=== PATIENT | female | born 1995 | race American Indian/Alaskan Native ===

== ENCOUNTER 2020-07-02 13:55 | Observation (INO) | payer SELFPAY ==
[2020-07-02] MEDS ORDERED: ONDANSETRON 4 MG ODT TAB PO ONE (14:27)
[2020-07-02] MEDS ORDERED: HYDROcodone/ACETAMINOPHEN 5-325 MG TAB PO ONE (14:27)
[2020-07-02 15:12] LABS: Basophils % (Auto) 0.3 % (0.0-1.8); Eosinophils # (Auto) 0.1 K/mm3 (0.0-0.4); Eosinophils % (Auto) 0.5 % (0.0-4.3); Hemoglobin 10.9 gm/dl (10.1-14.3); Lymphocytes # (Auto) 1.3 K/mm3 (1.2-5.4); Mean Corpuscular HGB Conc 33 % (30-34); Mean Corpuscular Volume 80 fl (79-97); Monocytes % (Auto) 7.1 % (0.0-7.3); Platelet Count 229 K/mm3 (140-440); Red Blood Count 4.15 M/mm3 (3.65-5.03); Red Cell Distribution Width 16.8 % (13.2-15.2)
[2020-07-02 15:33] LABS: Alanine Aminotransferase 12 units/L (7-56); Albumin 4.4 g/dL (3.9-5); Blood Urea Nitrogen 7 mg/dL (7-17); Calcium 9.3 mg/dL (8.4-10.2); Hemolysis Index 11
[2020-07-02 15:40] LABS: BUN/Creatinine Ratio 12
--- NOTE | 2020-07-02 15:52 | Emergency Department Report ---
ED Female HPI - General Chief complaint: Vaginal Bleeding Stated complaint: /LABOR CRAMPS Time Seen by Provider: 07/02/20 14:21 Source: patient Mode of arrival: Ambulatory Limitations: No Limitations - History of Present Illness Initial comments: Patient is a 24-year-old female presents emergency room complaints of lower abdominal pain that began last night. She describes the pain as contractions and cramping. Patient states that she had a medical pill on 06/29/2020. She states that she also has heavy vaginal bleeding. She states that she is changing her pad approximately every 30 minutes or so. She states that she did not realize that the medicine was in a cause contractions. She states that they wrote for her to have 100 mg of ibuprofen but states that it is not helping relieve her pain. She states that she has associated nausea and has had a couple episodes of vomiting. She denies any dysuria, abnormal vaginal di scharge, fever, diarrhea. No past medical history. No allergies to medications. She states that she was approximately 7 weeks prior to having her . /P: 1/A: 2 (one miscarriage, one ) - Related Data Home Medications Medication Instructions Recorded Confirmed Last Taken No Known Home Medications [No 07/02/20 07/02/20 Unknown Reported Home Medications] Allergies Allergy/AdvReac Type Severity Reaction Status Date / Time Sulfa (Sulfonamide Allergy Unknown Verified 07/02/20 18:48 Antibiotics) ED Review of Systems ROS: Stated complaint: /LABOR CRAMPS Other details as noted in HPI Comment: All other systems reviewed and negative ED Past Medical Hx - Past Medical History Previous Medical History?: No - Social History Smoking Status: Never Smoker Substance Use Type: None - Medications Home Medications: Home Medications Medication Instructions Recorded Confirmed Last Taken Type No Known Home Medications [No 07/02/20 07/02/20 Unknown History Reported Home Medications] ED Physical Exam - General Limitations: No Limitations General appearance: alert, in no apparent distress - Head Head exam: Present: atraumatic, normocephalic - Eye Eye exam: Present: normal appearance - ENT ENT exam: Present: mucous membranes moist - Respiratory Respiratory exam: Present: normal lung sounds bilaterally. Absent: respiratory distress, wheezes, rales, rhonchi, stridor, chest wall tenderness, accessory muscle use, decreased breath sounds, prolonged expiratory - Cardiovascular Cardiovascular Exam: Present: regular rate, normal rhythm, normal heart sounds. Absent: systolic murmur, diastolic murmur, rubs, gallop - GI/Abdominal GI/Abdominal exam: Present: soft, tenderness (surapubic ), normal bowel sounds. Absent: distended, guarding, rebound, rigid - Neurological Exam Neurological exam: Present: alert, oriented X3 - Psychiatric Psychiatric exam: Present: normal affect, normal mood - Skin Skin exam: Present: warm, dry, intact ED Course Vital Signs 07/02/20 07/02/20 07/02/20 14:22 15:00 18:14 Temperature 98.1 F Pulse Rate 86 Respiratory 18 18 18 Rate Blood Pressure 113/71 Blood Pressure [Right] O2 Sat by Pulse 99 100 Oximetry 07/02/20 18:23 Temperature 97.8 F Pulse Rate 86 Respiratory 18 Rate Blood Pressure Blood Pressure 114/60 [Right] O2 Sat by Pulse 100 Oximetry - Consultations Consultation #1: 07/02/20 18:[address] Edouard, E [employer] COORDINATOR who states that she plans to take patient to the OR for a D&C due to retained products/incomplete . ED Medical Decision Making - Lab Data Result diagrams: 07/02/20 14:55 07/02/20 14:55 Lab Results 07/02/20 07/02/20 07/02/20 Range/Units 14:55 14:55 14:55 WBC 13.5 H (4.5-11.0) K/mm3 RBC 4.15 (3.65-5.03) M/mm3 Hgb 10.9 (10.1-14.3) gm/dl Hct 33.0 (30.3-42.9) % MCV 80 (79-97) fl MCH 26 L (28-32) pg MCHC 33 (30-34) % RDW 16.8 H (13.2-15.2) % Plt Count 229 (140-440) K/mm3 Lymph % (Auto) 10.0 L (13.4-35.0) % [place] % (Auto) 7.1 (0.0-7.3) % Eos % (Auto) 0.5 (0.0-4.3) % Baso % (Auto) 0.3 (0.0-1.8) % Lymph # (Auto) 1.3 (1.2-5.4) K/mm3 [place] # (Auto) 1.0 H (0.0-0.8) K/mm3 Eos # (Auto) 0.1 (0.0-0.4) K/mm3 Baso # (Auto) 0.0 (0.0-0.1) K/mm3 Seg Neutrophils % 82.1 H (40.0-70.0) % Seg Neutrophils # 11.1 H (1.8-7.7) K/mm3 Sodium 134 L (137-145) mmol/L Potassium 3.5 L (3.6-5.0) mmol/L Chloride 98.5 (98-107) mmol/L Carbon Dioxide 22 (22-30) mmol/L Anion Gap 17 mmol/L BUN 7 (7-17) mg/dL Creatinine 0.6 (0.6-1.2) mg/dL Estimated GFR > 60 ml/min BUN/Creatinine Ratio 12 % Glucose 82 (65-100) mg/dL Calcium 9.3 (8.4-10.2) mg/dL Total Bilirubin 0.30 (0.1-1.2) mg/dL AST 19 (5-40) units/L ALT 12 (7-56) units/L Alkaline Phosphatase 50 (35-129) units/L Total Protein 7.6 (6.3-8.2) g/dL Albumin 4.4 (3.9-5) g/dL Albumin/Globulin Ratio 1.4 % HCG, Quant 65304 H (0-4) mIU/mL Urine Color (Yellow) Urine Turbidity (Clear) Urine pH (5.0-7.0) Ur Specific [place] (1.003-1.030) Urine Protein (Negative) mg/dL Urine Glucose (UA) (Negative) mg/dL Urine Ketones (Negative) mg/dL Urine Blood (Negative) Urine Nitrite (Negative) Urine Bilirubin (Negative) Urine Urobilinogen (<2.0) mg/dL Ur Leukocyte Esterase (Negative) Urine WBC (Auto) (0.0-6.0) /HPF Urine RBC (Auto) (0.0-6.0) /HPF U Epithel Cells (Auto) (0-13.0) /HPF Urine Mucus /HPF Blood Type 07/02/20 07/02/20 Range/Units 14:55 15:47 WBC (4.5-11.0) K/mm3 RBC (3.65-5.03) M/mm3 Hgb (10.1-14.3) gm/dl Hct (30.3-42.9) % MCV (79-97) fl MCH (28-32) pg MCHC (30-34) % RDW (13.2-15.2) % Plt Count (140-440) K/mm3 Lymph % (Auto) (13.4-35.0) % [place] % (Auto) (0.0-7.3) % Eos % (Auto) (0.0-4.3) % Baso % (Auto) (0.0-1.8) % Lymph # (Auto) (1.2-5.4) K/mm3 [place] # (Auto) (0.0-0.8) K/mm3 Eos # (Auto) (0.0-0.4) K/mm3 Baso # (Auto) (0.0-0.1) K/mm3 Seg Neutrophils % (40.0-70.0) % Seg Neutrophils # (1.8-7.7) K/mm3 Sodium (137-145) mmol/L Potassium (3.6-5.0) mmol/L Chloride (98-107) mmol/L Carbon Dioxide (22-30) mmol/L Anion Gap mmol/L BUN (7-17) mg/dL Creatinine (0.6-1.2) mg/dL Estimated GFR ml/min BUN/Creatinine Ratio % Glucose (65-100) mg/dL Calcium (8.4-10.2) mg/dL Total Bilirubin (0.1-1.2) mg/dL AST (5-40) units/L ALT (7-56) units/L Alkaline Phosphatase (35-129) units/L Total Protein (6.3-8.2) g/dL Albumin (3.9-5) g/dL Albumin/Globulin Ratio % HCG, Quant (0-4) mIU/mL Urine Color Yellow (Yellow) Urine Turbidity Clear (Clear) Urine pH 5.0 (5.0-7.0) Ur Specific [place] 1.014 (1.003-1.030) Urine Protein 30 mg/dl (Negative) mg/dL Urine Glucose (UA) Neg (Negative) mg/dL Urine Ketones 20 (Negative) mg/dL Urine Blood Lg (Negative) Urine Nitrite Neg (Negative) Urine Bilirubin Neg (Negative) Urine Urobilinogen < 2.0 (<2.0) mg/dL Ur Leukocyte Esterase Tr (Negative) Urine WBC (Auto) 3.0 (0.0-6.0) /HPF Urine RBC (Auto) > 182.0 (0.0-6.0) /HPF U Epithel Cells (Auto) 1.0 (0-13.0) /HPF Urine Mucus Few /HPF Blood Type A POSITIVE - Radiology Data Radiology results: report reviewed Ordering Physician: SHABNAM YEE Date of Service: 07/02/20 Procedure(s): US OB transvaginal Accession Number(s): [id number] cc: SHABNAM YEE ULTRASOUND OBSTETRIC REASON FOR EXAM: recent pill , increasing pain/bleeding TECHNIQUE: Transabdominal and transvaginal ultrasound was performed to evaluate a first trimester . COMPARISON: None available. FINDINGS: Uterus measures 10 x 5.5 x 5.9 cm. There is a thickened and heterogeneous endometrial stripe, measuring up to 0.8 cm. Hypoechoic material distends the endocervical canal. Normal IUP is not seen. The right ovary measures 2.6 x 1.4 x 2.0 cm, and the left ovary measures 3.4 x 2.1 x 3.0 cm. There is a 1.8 cm cystic structure within the left ovary, compatible with corpus luteum cyst. No significant free fluid. IMPRESSION: No IUP is visualized. Hypoechoic material distends the cervical canal, likely related to clinically suspected incomplete . Continued follow-up is recommended. Signer Name: Kassandra Abdul MD Signed: 07/02/2020 5:10 PM Workstation Name: [id number] Transcribed By: CATHERINE Dictated By: KASSANDRA ABDUL MD Electronically Authenticated By: KASSANDRA ABDUL MD Signed Date/Time: 07/02/201709 DD/ 04 TD/TT: - Medical Decision Making Patient is a 24-year-old female presents emergency room complaints of lower abdominal pain that began last night. She describes the pain as contractions and cramping. Patient states that she had a medical pill on 06/29/2020. She states that she also has heavy vaginal bleeding. She states that she is changing her pad approximately every 30 minutes or so. She states that she did not realize that the medicine was in a cause contractions. She states that they wrote for her to have 100 mg of ibuprofen but states that it is not helping relieve her pain. She states that she has associated nausea and has had a couple episodes of vomiting. She denies any dysuria, abnormal vaginal discharg e, fever, diarrhea. No past medical history. No allergies to medications. She states that she was approximately 7 weeks prior to having her . /P: 1/A: 2 (one miscarriage, one ) vitals are normal. On exam patient has suprapubic abdominal tenderness palpation, no guarding, no rebound, no rigidity, normal bowel sounds, no peritoneal signs. Labs with mildly elevated white blood cell count at 13.5[place] [address]. Patient is Rh+. UA is within normal limits. OB ultrasound No IUP is visualized. Hypoechoic material distends the cervical canal, likely related to clinicallysuspected incomplete . Continued follow-up is recommended. Spoke to Dr. Edouard, E [employer] COORDINATOR who states that she plans to take patient to the OR for a D&C due to retained products/incomplete . Critical care attestation.: If time is entered above; I have spent that time in minutes in the direct care of this critically ill patient, excluding procedure time. ED Disposition Clinical Impression: Incomplete , Retained products of conception Disposition: OP ADMIT IP TO THIS HOSP Is pt being admited?: Yes Does the pt Need Aspirin: No Condition: Stable
[2020-07-02 16:42] LABS: Bilirubin,Urine NEG (Negative); Blood,Urine LG (Negative); Color,Urine Yellow (Yellow); Mucus,Urine FEW /HPF; Urobilinogen,Urine < 2.0 mg/dL (<2.0)
[2020-07-02 16:46] LABS: RBC,Urine > 182.0 /HPF (0.0-6.0)
--- NOTE | 2020-07-02 17:15 | Ultrasound Report ---
ULTRASOUND OBSTETRIC REASON FOR EXAM: recent pill , increasing pain/bleeding TECHNIQUE: Transabdominal and transvaginal ultrasound was performed to evaluate a first trimester pre gnancy. COMPARISON: None available. FINDINGS: Uterus measures 10 x 5.5 x 5.9 cm. There is a thickened and heterogeneous endometrial stripe, measuri ng up to 0.8 cm. Hypoechoic material distends the endocervical canal. Normal IUP is not seen. The right ovary measures 2.6 x 1.4 x 2.0 cm, and the left ovary measures 3.4 x 2.1 x 3.0 cm. There is a 1.8 cm cystic structure within the left ovary, compatible with corpus luteum cyst. No significant free fluid. IMPRESSION: No IUP is visualized. Hypoechoic material distends the cervical canal, likely related to clinically s uspected incomplete . Continued follow-up is recommended. Signer Name: Cecilio Kline MD Signed: 07/02/2020 5:10 PM Workstation Name: [id number]
[2020-07-02] MEDS ORDERED: ceFAZolin/Water 2 GM/20 ML 2 GM/20 ML SYRINGE IV NR (19:00)
[2020-07-02] MEDS ORDERED: HYDROmorphone 1 MG/1 ML INJ ONE (19:31)
[2020-07-02] MEDS ORDERED: propofoL 200 MG/20 ML VIAL IV ONE (19:32)
[2020-07-02] MEDS ORDERED: LIDOCAINE MPF (2%) 20 MG/1 ML VIAL 5 ML ONE (19:35)
--- NOTE | 2020-07-02 19:41 | Anesthesia Day of Surgery ---
Anesthesia Day of Surgery - Day of Surgery Patient Examined: Yes Patient H&P Reviewed: Yes Patient is NPO: Yes
--- NOTE | 2020-07-02 19:41 | Anesthesia Consultation ---
Anesthesia Consult and Med Hx Date of service: 07/02/20 - Airway Anesthetic Teeth Evaluation: Good ROM Head & Neck: Adequate Mental/Hyoid Distance: Adequate Mallampati Class: Class II Intubation Access Assessment: Probably Good - Pre-Operative Health Status ASA Pre-Surgery Classification: ASA1 Proposed Anesthetic Plan: General - Additional Comments Anesthesia Medical History Comments: missed AB
[2020-07-02] MEDS ORDERED: HYDROmorphone 1 MG/1 ML INJ IV PRN ×2 (20:43)
[2020-07-02] MEDS ORDERED: ONDANSETRON 4 MG/2 ML INJ IV PRN ×2 (20:43→21:41)
[2020-07-02] MEDS ORDERED: miSOPROStol 200 MCG TAB ONE (21:01)
[2020-07-02] MEDS ORDERED: KETOROLAC 30 MG/1 ML INJ ONE (21:03)
[2020-07-02] MEDS ORDERED: LACTATED RINGERS 1,000 ML ONE (21:03)
[2020-07-02] MEDS ORDERED: miSOPROStol 200 MCG TAB VG ONE (21:04)
--- NOTE | 2020-07-02 21:15 | History and Physical Report ---
History of Present Illness Date of examination: 07/02/20 Date of admission: 07/02/20 18:29 Chief complaint: pt states that she had elective o0n 06/29/20 and was given pills for which she took and today she is still with vaginal bleeding. History of present illness: at 6.6wks by LMP 05/15/20 and came to ER earlier today with no care and now with vaginal bleeding and pain after doing elective medical 3days ago on 06/29/20 and pt cannot recall the name of the med used. I was called by ER Nurse practitioner about this patient. pt denies fever or chills. Pt states she has not eaten all day and admits to N/V. Pt is from out [place], [place] and has no immediate family here. Pt states that the FOB is not aware. Denies dysuria. pt had u/s done in ER today that showed retained POC Past History Past Medical History: no pertinent history Past Surgical History: section (x1 for term in 2016) [employer] History: other (Denies any stds) Social history: no significant social history - Obstetrical History : 3 Para: 1 Spontaneous Abortions: 1 Induced : 1 Medications and Allergies Allergies Allergy/AdvReac Type Severity Reaction Status Date / Time Sulfa (Sulfonamide Allergy Unknown Verified 07/02/20 18:48 Antibiotics) Home Medications Medication Instructions Recorded Confirmed Last Taken Type No Known Home Medications [No 07/02/20 07/02/20 Unknown History Reported Home Medications] Active Meds: Active Medications Hydromorphone HCl (Hydromorphone 1 Mg/1 Ml Inj) 0.25 mg IV Q10MIN PRN PRN Reason: Pain, Moderate (4-6) Stop: 07/03/20 20:42 Hydromorphone HCl (Hydromorphone 1 Mg/1 Ml Inj) 0.5 mg IV Q10MIN PRN PRN Reason: Pain , Severe (7-10) Stop: 07/03/20 20:42 Cefazolin Sodium (Ancef/Sterile Water 2 Gm/20 Ml) 2 gm in 20 mls @ 80 mls/hr IV PREOP NR; Protocol Stop: 07/03/20 18:59 Ondansetron HCl (Ondansetron 4 Mg/2 Ml Inj) 4 mg IV ONCE PRN PRN Reason: Nausea And Vomiting Review of Systems All systems: negative (pain and vaginal bleeding) - Vital Signs Vital signs: Vital Signs Temp Pulse Resp BP Pulse Ox 98.1 F 86 18 113/71 99 07/02/20 14:22 07/02/20 14:22 07/02/20 14:22 07/02/20 14:22 07/02/20 14:22 Temp Pulse Resp BP Pulse Ox 97.8 F 86 18 114/60 100 07/02/20 18:23 07/02/20 18:23 07/02/20 18:23 07/02/20 18:23 07/02/20 18:23 - Physical Exam Breasts: Positive: deferred Cardiovascular: Regular rate Lungs: Positive: Normal air movement Abdomen: Positive: normal appearance Genitourinary (Female): Positive: normal external genitalia Vulva: both: normal Vagina: Positive: normal moisture Uterus: Positive: enlarged (approx 10wks by u/s dates and palpation) Adnexa: both: normal Anus/Rectum: Positive: normal perianal skin Extremities: Positive: normal - Obstetrical Cervical Dilatation: 1 (clots at the cervical os) Results Result Diagrams: 07/02/20 14:55 07/02/20 14:55 Abnormal lab results 07/02/20 07/02/20 07/02/20 Range/Units 14:55 14:55 14:55 WBC 13.5 H (4.5-11.0) K/mm3 MCH 26 L (28-32) pg RDW 16.8 H (13.2-15.2) % Lymph % (Auto) 10.0 L (13.4-35.0) % [place] # (Auto) 1.0 H (0.0-0.8) K/mm3 Seg Neutrophils % 82.1 H (40.0-70.0) % Seg Neutrophils # 11.1 H (1.8-7.7) K/mm3 Sodium 134 L (137-145) mmol/L Potassium 3.5 L (3.6-5.0) mmol/L HCG, Quant 75332 H (0-4) mIU/mL All other labs normal. Assessment and Plan with incomplete elective done at another facility, now with retained products, leucocytosis and active bleeding and previous section x1 1. Discussed the risks, benefits and alternatives of medical versus surgical management and pt accepted surgical mgt 2. Consents obtained and OR and anesthesiologist notified 3. U/S team consulted for intraop ultrasound guidance to ensure products removed
--- NOTE | 2020-07-02 21:25 | Post Anesthesia Evaluation ---
- Post Anesthesia Evaluation Patient Participated: Yes Airway Patent: Yes Stable Respiratory Function: Yes Nausea/Vomiting: No Temp > 96.8F: Yes Pain Manageable: Yes Adequeate Hydration: Yes Anesthesia Complications: No Block Receding Appropriately: Not Applicable Patient on Ventilator: No
[2020-07-02] MEDS ORDERED: oxyCODONE /ACETAMINOPHEN 5-325MG TAB PO PRN (21:39)
[2020-07-02] MEDS ORDERED: IBUPROFEN 800 MG TAB PO PRN (21:40)
[2020-07-02] MEDS ORDERED: KETOROLAC 30 MG/1 ML INJ IV PRN (21:43)
--- NOTE | 2020-07-02 21:58 | Procedure Note ---
Date of procedure: 07/02/20 Pre-op diagnosis: Incomplete with active bleed, previous section Post-op diagnosis: same (and early signs of infection) Procedure: Surgeon:Mattie Piña MD Preop Dx:Incomplete AB at 6.6wks, active bleed with retained products via u/soun d; previous section x1 Postop Dx:same and early signs of infection Anesthesia: general Fluids:200cc crystalloids Output:100cc cloudy urine intraop prior to doing the case EBL:100cc Complication:none Pathology: products of conception Findings: Bimanual with 10wk size uterus and normal adnexa with moderate vaginal bleed, cervix able to accomodate 13mm dilator, moderate amount of fragments of tissues, appears infected Procedure: After the risks, benefits and alternatives of this procedure were discussed with patient, consents were signed and pt taken to the operating room. Time out done, and pt given preop antibiotics per protocol. Pt was given anesthesia and when same was adequate she was placed in [place] position, prep and draped in usual sterile fashion. Bladder was emptied and bimanual exam done. Weighted speculum placed in the vagina, anterior lip of the cervix grasped and same already dilated and able to accomodate 13mm. Uterine sound done and same was 8cm. Suction curettage gently advanced to the fundus and the uterine contents removed. Sharp curettage then done to all quadrants and the contents removed using suction device. Intraop ultrasound guidance done to verify all products of conception removed and the specimen sent to lab. The single tooth tenaculum removed and the site noted to be hemostatic. All instruments removed from the vagina and sponge, lap and instrument counts correct x2. pt given cytotec 800mcg per rectum then Pt extubated and taken to recovery room stable. Dictation done by Dr. Marc Piña Findings: anteverted uterus approx 10wks on bimanual, cervix dilated and active bleeding seen; normal adnexa Implants: none Anesthesia: GETA Surgeon: MATTIE PIÑA Estimated blood loss: other (100cc) Pathology: list (products of conception) Specimen disposition: to lab, other (and urine culture) Condition: stable Disposition: floor
[2020-07-02] MEDS ORDERED: D5W/LACTATED RINGERS 1,000 ML IV SCH (22:00)
[2020-07-02] MEDS ORDERED: DOXYCYCLINE HYCLATE 100 MG in SODIUM CHLORIDE 0.9% 250ML 250 ML IV SCH (22:00)
[2020-07-02] MEDS ORDERED: MAGNESIUM HYDROXIDE (MOM) ORAL LIQD UDC PO PRN (22:21)
[2020-07-02] MEDS ORDERED: PHENOL 1.4% 177 ML BOTTLE MM PRN (22:21)
[2020-07-03 05:56] LABS: Basophils % (Auto) 0.2 % (0.0-1.8); Eosinophils # (Auto) 0.1 K/mm3 (0.0-0.4); Eosinophils % (Auto) 1.1 % (0.0-4.3); Hematocrit 25.3 % (30.3-42.9); Hemoglobin 8.5 gm/dl (10.1-14.3); Lymphocytes # (Auto) 2.3 K/mm3 (1.2-5.4); Lymphocytes % (Auto) 24.8 % (13.4-35.0); Mean Corpuscular HGB Conc 34 % (30-34); Mean Corpuscular Volume 80 fl (79-97); Monocytes # (Auto) 0.7 K/mm3 (0.0-0.8); Monocytes % (Auto) 7.4 % (0.0-7.3); Platelet Count 197 K/mm3 (140-440); Red Blood Count 3.15 M/mm3 (3.65-5.03); Red Cell Distribution Width 16.4 % (13.2-15.2)
--- NOTE | 2020-07-03 07:25 | Progress Note ---
Assessment and Plan POD#1 suction D and C doing well 1. IV restart done by me to right hand and pt to get doxycyline IV at 10am and then discharge home 2. Routine post op care and F/U in office in one wk 3. Will follow urine culture postop and get pathology report; will give macrobid for presumed UTI and doxy x5days; also percocet and motrin prn pain All questions encouraged and answered Subjective Date of service: 07/03/20 Principal diagnosis: s/p Dilatation and curettage POD#1 Interval history: pt states that she feels good. Denies vag bleeding and nurse states pt did not call for any pain med overnight. pt states that her IV antibiotic med not received because her left hand was burning. Nurse states pt got 80% of the med. Multiple IV starts were unsuccessful by them and no one called me overnight. Pt voiding well. pt tolerating diet. Denies N/V/F/C Objective - Constitutional Vitals: Vital Signs - 12hr 07/02/20 07/02/20 07/02/20 21:16 21:20 21:25 Temperature 98.6 F Pulse Rate 102 H 108 H 88 Respiratory 14 14 12 Rate Blood Pressure 118/75 113/79 128/80 Blood Pressure [Right] O2 Sat by Pulse 100 100 100 Oximetry 07/02/20 07/02/20 07/02/20 21:30 21:45 21:55 Temperature Pulse Rate 69 80 Respiratory 12 14 16 Rate Blood Pressure 122/81 127/75 Blood Pressure [Right] O2 Sat by Pulse 100 100 Oximetry 07/02/20 07/02/20 07/03/20 22:00 22:20 04:30 Temperature 98.4 F 98.4 F 98.1 F Pulse Rate 79 79 75 Respiratory 26 H 16 18 Rate Blood Pressure 122/76 Blood Pressure 122/76 93/45 [Right] O2 Sat by Pulse 99 100 100 Oximetry General appearance: Present: no acute distress - Neck Neck: normal ROM - Respiratory Respiratory effort: normal - Breasts Breasts: deferred - Cardiovascular Rhythm: regular Extremities: No edema - Gastrointestinal General gastrointestinal: Present: non-tender Rectal Exam: deferred - Genitourinary Female genitourinary: other (peripad with scant vag bleed) - Musculoskeletal Musculoskeletal: strength equal bilaterally - Psychiatric Psychiatric: appropriate mood/affect - Labs CBC & Chem 7: 07/03/20 05:39 07/02/20 14:55 Labs: Abnormal lab results 07/02/20 07/02/20 07/02/20 Range/Units 14:55 14:55 14:55 WBC 13.5 H (4.5-11.0) K/mm3 RBC (3.65-5.03) M/mm3 Hgb (10.1-14.3) gm/dl Hct (30.3-42.9) % MCH 26 L (28-32) pg RDW 16.8 H (13.2-15.2) % Lymph % (Auto) 10.0 L (13.4-35.0) % Power % (Auto) (0.0-7.3) % Power # (Auto) 1.0 H (0.0-0.8) K/mm3 Seg Neutrophils % 82.1 H (40.0-70.0) % Seg Neutrophils # 11.1 H (1.8-7.7) K/mm3 Sodium 134 L (137-145) mmol/L Potassium 3.5 L (3.6-5.0) mmol/L HCG, Quant 01030 H (0-4) mIU/mL 07/03/20 07/03/20 Range/Units 05:39 05:39 WBC (4.5-11.0) K/mm3 RBC 3.15 L (3.65-5.03) M/mm3 Hgb 8.5 L (10.1-14.3) gm/dl Hct 25.3 L D (30.3-42.9) % MCH 27 L (28-32) pg RDW 16.4 H (13.2-15.2) % Lymph % (Auto) (13.4-35.0) % Power % (Auto) 7.4 H (0.0-7.3) % Power # (Auto) (0.0-0.8) K/mm3 Seg Neutrophils % (40.0-70.0) % Seg Neutrophils # (1.8-7.7) K/mm3 Sodium (137-145) mmol/L Potassium (3.6-5.0) mmol/L HCG, Quant 49786 H (0-4) mIU/mL Medications & Allergies - Medications Allergies/Adverse Reactions: Allergies Sulfa (Sulfonamide Antibiotics) Allergy (Verified 07/02/20 18:48) Unknown Home Medications: Home Medications Medication Instructions Recorded Confirmed Last Taken Type No Known Home Medications [No 07/02/20 07/02/20 Unknown History Reported Home Medications] Active Medications: Generic Name Dose Route Start Last Admin Trade Name Freq PRN Reason Stop Dose Admin Hydromorphone HCl 0.25 mg 07/02/20 20:43 07/02/20 21:25 Hydromorphone 1 Mg/1 Ml Inj IV 07/03/20 20:42 0.25 mg Q10MIN PRN Administration Pain, Moderate (4-6) Hydromorphone HCl 0.5 mg 07/02/20 20:43 Hydromorphone 1 Mg/1 Ml Inj IV 07/03/20 20:42 Q10MIN PRN Pain , Severe (7-10) Dextrose/Lactated Ringer's 1,000 mls @ 125 mls/hr 07/02/20 22:00 07/03/20 04:39 D5lr IV 125 mls/hr DIRECT KIRBY Administration Doxycycline Hyclate 100 mg/ 250 mls @ 250 mls/hr 07/02/20 22:00 07/03/20 01 :18 Sodium Chloride IV Infused Q12HR KIRBY Infusion Protocol Ibuprofen 800 mg 07/02/20 21:40 Ibuprofen 800 Mg Tab PO Q8H PRN Pain, Mild (1-3) Ketorolac Tromethamine 30 mg 07/02/20 21:43 Ketorolac 30 Mg/1 Ml Inj IV Q6H PRN Pain, Moderate (4-6) Magnesium Hydroxide 30 ml 07/02/20 22:21 Magnesium Hydroxide (Mom) Oral Liqd Udc PO QDAY PRN Constipation Ondansetron HCl 4 mg 07/02/20 20:43 Ondansetron 4 Mg/2 Ml Inj IV ONCE PRN Nausea And Vomiting Ondansetron HCl 4 mg 07/02/20 21:41 Ondansetron 4 Mg/2 Ml Inj IV Q4H PRN Nausea And Vomiting Oxycodone/Acetaminophen 2 tab 07/02/20 21:39 Oxycodone /Acetaminophen 5-325mg Tab PO Q4H PRN Pain, Moderate (4-6) Phenol 1 spray 07/02/20 22:21 Phenol 1.4% 177 Ml Bottle MM PRN PRN Sore Throat
[2020-07-03 09:23] VITALS: BP 111/61
--- NOTE | 2020-07-03 10:22 | Ultrasound Report ---
Ultrasound-guided intraoperative HISTORY: Incomplete , guidance for D and C TECHNIQUE: Transabdominal imaging. COMPARISON: 07/02/2020. FINDINGS: Ultrasound guidance was provided by radiology during D and C by [employer]. The uterus is antev erted measuring 9 x 6 x 6 cm. No uterine fibroid disease is appreciated. The endometrium measures les s than 5 mm after the procedure. Please correlate with the procedural report as needed. IMPRESSION: Successful D and C under ultrasound guidance. Signer Name: Octavio Reis Jr, MD Signed: 07/03/2020 10:18 AM Workstation Name: [id number]
--- NOTE | 2020-07-03 13:56 | Discharge Summary ---
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 pt accepted surgical mgt after risks, benefits and alternatives were discussed in detail and pt had uncomplicated suction dilatation and curettage with ultrasound introperatively confirming no retained products of conceception. This patient was kept overnight because patient had no ride home. Tissue sent for pathology. pt also given oral antibiotic for presumed UTI and urine culture sent while in the operating room from straight cath specimen. Pt was also given IV doxycycline post procedure and discharge home on oral med x5days with early signs of infection noted intraoperatively. Pt verbalized discharge instructions and schedule for follow up in the office in one wk. Condition at discharge: Good Disposition: [id number] TO HOME OR SELFCARE - Discharge Diagnoses (1) S/P dilatation and curettage Status: Acute (2) Incomplete Status: Acute (3) UTI (urinary tract infection) Status: Acute Qualifiers: Urinary tract infection type: acute cystitis Hematuria presence: with hematuria Qualified Code(s): N30.01 - Acute cystitis with hematuria Plan - Discharge Medications Prescriptions: Doxycycline Monohydrate 100 mg PO BID 5 Days #10 capsule Ferrous Sulfate [Ferrous Sulfate 324 MG] 324 mg PO BID 30 Days #60 tablet. Nitrofurantoin [place]/M-Cryst [Macrobid CAP] 100 mg PO Q12HR 5 Days #10 capsule Ibuprofen [Motrin] 800 mg PO Q8HR PRN 14 Days #40 tablet PRN Reason: Pain, Moderate (4-6) oxyCODONE /ACETAMINOPHEN [Percocet 5/325] 1 tab PO Q4HR 7 Days #20 tab - Provider Discharge Summary Additional instructions: [] Smoking cessation referral if applicable(refer to patient education folder for contact #) [] Refer to [facility] Booklet Call your doctor immediately for: * Fever > 100.5 * Heavy vaginal bleeding ( >1 pad per hour) * Severe persistent headache * Shortness of breath * Reddened, hot, painful area to leg or breast * Drainage or odor from incision. * Keep incision clean and dry at all times and follow doctor's instructions regarding bathing/showering - Follow up plan Follow up: TC PIÑA MD [Staff Physician] - 7 Days Forms: [facility] Discharge Summary
== END 2020-07-03 11:50 | disposition home or self-care (01) ==
LOC: EDBD → ED 13:55 → OB 18:29
PROVIDERS: ADMIT Obstetrics & Gynecology; ATTEND Obstetrics & Gynecology
DX: O03.1 Delayed or excessive hemorrhage following incomplete spontaneous abortion (principal); D72.829 Elevated white blood cell count, unspecified; Z98.891 History of uterine scar from previous surgery; Z79.899 Other long term (current) drug therapy
CPT/HCPCS: 36415; 59812; 76801; 76817; 76998; 80053; 81001; 84702; 85025; 86850; 86900; 86901; 87086; 88305; 96361; 96365; 96366; 96375; 99284; G0378; J1170; J2704; J7050; J7120; J7121; J1885; Q0162